=== PATIENT | female | born 1970 | race Caucasian/White ===

== ENCOUNTER 2019-07-22 10:26 | Emergency (ER) | payer OTHER ==
[2019-07-22] MEDS ORDERED: Sodium Chloride 0.9% 1,000 ML IV ONE (10:28)
[2019-07-22] MEDS ORDERED: Ondansetron 4 MG/2 ML SDV IVPUSH ONE (10:40)
[2019-07-22] MEDS ORDERED: Ketorolac 30 MG/ML SDV IVPUSH ONE (10:40)
--- NOTE | 2019-07-22 10:40 | EDM.PDOC ---
ED HPI GENERAL MEDICAL PROBLEM - General Chief Complaint: Flank Pain Stated Complaint: POSSIBLE KIDNEY STONE Time Seen by Provider: 07/22/19 10:27 Source of Information: Reports: Patient History Limitations: Reports: No Limitations - History of Present Illness INITIAL COMMENTS - FREE TEXT/NARRATIVE: HISTORY AND PHYSICAL: History of present illness: Patient is a 48-year-old female who presents to the emergency room with complaints of flank pain. Patient was seen in the emergency room at [facility] yesterday for this pain and was diagnosed with a 13 mm kidney stone on the right. She states she was given information to make an appointment with urology but was not given any prescription pain medications. She states that [id number] Tylenol and ibuprofen have not been alleviating her discomfort and is now concerned that her kidney may be "infected" as she did not have pain this severely yesterday. Patient denies any fever, chills, headache, change in vision, syncope or near syncope. Denies any chest pain, back pain, shortness of breath or cough. Denies any vomiting, diarrhea, constipation or dysuria. Has not noted any blood in urine or stool. Patient has been eating and drinking appropriately. Review of systems: As per history of present illness and below otherwise all systems reviewed and negative. Past medical history: As per history of present illness and as reviewed below otherwise noncontributory. Surgical history: As per history of present illness and as reviewed below otherwise noncontributory. Social history: See social history for further information Family history: As per history of present illness and as reviewed below otherwise noncontributory. Physical exam: General: Well-developed and well-nourished 48-year-old female. Alert and oriented. Nontoxic appearing and in no acute distress. HEENT: Atraumatic, normocephalic, pupils equal and reactive bilaterally, negative for conjunctival pallor or scleral icterus, mucous membranes moist, TMs normal bilaterally, throat clear, neck supple, nontender, trachea midline. No drooling or trismus noted. No meningeal signs. No hot potato voice noted. Lungs: Clear to auscultation, breath sounds equal bilaterally, chest nontender. Heart: S1S2, regular rate and rhythm without overt murmur Abdomen: Soft, nondistended, nontender. Negative for masses or hepatosplenomegaly. Negative for costovertebral tenderness. Pelvis: Stable nontender. Skin: Intact, warm, dry. No lesions or rashes noted. Extremities: Atraumatic, moves all extremities per self without difficulty or deficits, negative for cords or calf pain. Neurovascular unremarkable. Neuro: Awake, alert, oriented. Cranial nerves II through XII unremarkable. Cerebellum unremarkable. Motor and sensory unremarkable throughout. Exam nonfocal. Notes: Did attempt to reach out to [facility] to obtain her records but this was unsuccessful. Patient does request that a repeat CT be done as she is concerned that her kidney is now "infected". CT shows a 9 mm stone in the right UPJ which causes moderate right-sided hydronephrosis. Patient states she does already have contact with Dr. Dailey at [facility] [place]. She states she was never given any prescriptions for Flomax her pain medication. She is comfortable calling in the morning to set up this appointment as the providers already aware of her case. We'll give her prescription for pain management along with Flomax and antinausea. We discussed signs and symptoms that would prompt her to return to the emergency room. Supportive care measures were reviewed and discussed. Voices understanding and is agreeable to plan of care. Denies any further questions or concerns at this time. Diagnostics: CBC, CMP, UA, CT abd/pelv Therapeutics: IV fluids, Zofran, Toradol, Flomax Prescription: Cipro BID x 7 days Flomax [place] (#20) Zofran Impression: Right renal stone UTI Plan: 1. Increase your oral fluids. Take the medications as prescribed. 2. Please call the urologist at [facility] in [place] tomorrow morning to set up your follow-up appointment. 3. Return to the ED as needed and as discussed. Definitive disposition and diagnosis as appropriate pending reevaluation and review of above. right flank Pain Score (Numeric/FACES): 8 - Related Data Allergies Allergy/AdvReac Type Severity Reaction Status Date / Time No Known Allergies Allergy Verified 07/22/19 10:44 Home Meds: Home Meds Lisinopril/Hydrochlorothiazide [Lisinopril-HCTZ 10-12.5 MG] 07/22/19 [History] Pantoprazole [ProTONIX] 07/22/19 [History] ED ROS GENERAL - Review of Systems Review Of Systems: Comprehensive ROS is negative, except as noted in HPI. ED EXAM, RENAL/ - Physical Exam Exam: See Below (See dictation) Course - Vital Signs Last Recorded V/S: Last Vital Signs Temp 96.6 F 07/22/19 10:45 Pulse 64 07/22/19 10:45 Resp 18 07/22/19 10:45 BP 188/94 H 07/22/19 10:45 Pulse Ox 98 07/22/19 10:45 - Orders/Labs/Meds Orders: Active Orders 24 hr Category Date Time Status CULTURE URINE [RM] Stat Lab 07/22/19 11:30 Received Labs: Laboratory Tests 07/22/19 07/22/19 07/22/19 Range/Units 11:00 11:00 11:30 WBC 6.50 (4.0-11.0) K/uL RBC 4.84 (4.30-5.90) M/uL Hgb 14.6 (12.0-16.0) g/dL Hct 42.1 (36.0-46.0) % MCV 87.0 (80.0-98.0) fL MCH 30.2 (27.0-32.0) pg MCHC 34.7 (31.0-37.0) g/dL RDW Std Deviation 40.1 (28.0-62.0) fl RDW Coeff of Char 13 (11.0-15.0) % Plt Count 274 (150-400) K/uL MPV 9.60 (7.40-12.00) fL Neut % (Auto) 60.3 (48.0-80.0) % Lymph % (Auto) 28.3 (16.0-40.0) % Victoria % (Auto) 9.2 (0.0-15.0) % Eos % (Auto) 1.7 (0.0-7.0) % Baso % (Auto) 0.5 (0.0-1.5) % Neut # (Auto) 3.9 (1.4-5.7) K/uL Lymph # (Auto) 1.8 (0.6-2.4) K/uL Victoria # (Auto) 0.6 (0.0-0.8) K/uL Eos # (Auto) 0.1 (0.0-0.7) K/uL Baso # (Auto) 0.0 (0.0-0.1) K/uL Nucleated RBC % 0.0 /100WBC Nucleated RBCs # 0 K/uL Sodium 140 (136-145) mmol/L Potassium 4.1 (3.5-5.1) mmol/L Chloride 104 (98-107) mmol/L Carbon Dioxide 26.7 (21.0-32.0) mmol/L BUN 16 (7.0-18.0) mg/dL Creatinine 1.0 (0.6-1.0) mg/dL Est Cr Clr Drug Dosing 60.06 mL/min Estimated GFR (MDRD) 59.4 ml/min Glucose 98 (74-106) mg/dL Calcium 9.4 (8.5-10.1) mg/dL Total Bilirubin 0.5 (0.2-1.0) mg/dL AST 19 (15-37) IU/L ALT 37 (14-63) IU/L Alkaline Phosphatase 71 (46-116) U/L Total Protein 7.3 (6.4-8.2) g/dL Albumin 3.7 (3.4-5.0) g/dL Globulin 3.6 (2.6-4.0) g/dL Albumin/Globulin Ratio 1.0 (0.9-1.6) Urine Color YELLOW Urine Appearance SLT CLOUDY Urine pH 6.5 (5.0-8.0) Ur Specific [place] 1.020 (1.001-1.035) Urine Protein TRACE H (NEGATIVE) mg/dL Urine Glucose (UA) NEGATIVE (NEGATIVE) mg/dL Urine Ketones NEGATIVE (NEGATIVE) mg/dL Urine Occult Blood MODERATE H (NEGATIVE) Urine Nitrite NEGATIVE (NEGATIVE) Urine Bilirubin NEGATIVE (NEGATIVE) Urine Urobilinogen 0.2 (<2.0) EU/dL Ur Leukocyte Esterase TRACE H (NEGATIVE) Urine RBC 35-40 (0-2/HPF) Urine WBC 4-7 (0-5/HPF) Ur Epithelial Cells MODERATE (NONE-FEW) Amorphous Sediment LIGHT (NEGATIVE) Urine Bacteria 2+ H (NEGATIVE) Urine Mucus LIGHT (NONE-MOD) Meds: Medications Discontinued Medications Generic Name Dose Route Start Last Admin Trade Name Freq PRN Reason Stop Dose Admin Sodium Chloride 1,000 mls @ 999 mls/hr 07/22/19 10:28 07/22/19 11:03 Normal Saline IV 07/22/19 11:28 999 mls/hr STAT ONE Administration Ketorolac Tromethamine 30 mg 07/22/19 10:40 07/22/19 11:03 Toradol IVPUSH 07/22/19 10:41 30 mg ONETIME ONE Administration Morphine Sulfate 4 mg 07/22/19 10:51 07/22/19 11:45 Morphine IVPUSH 07/22/19 10:52 4 mg ONETIME ONE Administration Ondansetron HCl 4 mg 07/22/19 10:40 07/22/19 11:03 Zofran IVPUSH 07/22/19 10:41 4 mg ONETIME ONE Administration Tamsulosin HCl 0.4 mg 07/22/19 10:51 07/22/19 11:03 Flomax PO 07/22/19 10:52 0.4 mg ONETIME ONE Administration Departure - Departure Time of Disposition: 12:01 Disposition: Home, Self-Care Clinical Impression: Renal calculus, right, UTI, Urinary tract infectious disease - Discharge Information Instructions: Kidney Stones, [id number], Urinary Tract Infection, Adult, Easy -to-Read Referrals: PCP,None [Primary Care Provider] - Forms: ED Department Discharge Additional Instructions: The following information is given to patients seen in the emergency department who are being discharged to home. This information is to outline your options for follow-up care. We provide all patients seen in our emergency department with a follow-up referral. The need for follow-up, as well as the timing and circumstances, are variable depending upon the specifics of your emergency department visit. If you don't have a primary care physician on staff, we will provide you with a referral. We always advise you to contact your personal physician following an emergency department visit to inform them of the circumstance of the visit and for follow-up with them and/or the need for any referrals to a consulting specialist. The emergency department will also refer you to a specialist when appropriate. This referral assures that you have the opportunity for follow-up care with a specialist. All of these measure are taken in an effort to provide you with optimal care, which includes your follow-up. Under all circumstances we always encourage you to contact your private physician who remains a resource for coordinating your care. When calling for follow-up care, please make the office aware that this follow-up is from your recent emergency room visit. If for any reason you are refused follow-up, please contact the [facility] Emergency Department at and asked to speak to the emergency department charge nurse. [facility] [address] [place] [id number] [id number] [facility] Specialty Care - Urology [address] [place] [id number] 1. Increase your oral fluids. Take the medications as prescribed. 2. Please call the urologist at [facility] in [place] tomorrow morning to set up your follow-up appointment. 3. Return to the ED as needed and as discussed. - My Orders Last 24 Hours: My Active Orders 07/22/19 11:30 CULTURE URINE [RM] Stat - Assessment/Plan Last 24 Hours: My Active Orders 07/22/19 11:30 CULTURE URINE [RM] Stat
[2019-07-22] MEDS ORDERED: Morphine 4 MG/ML Syringe IVPUSH ONE (10:51)
[2019-07-22] MEDS ORDERED: Tamsulosin 0.4 MG Cap.ER PO ONE (10:51)
[2019-07-22 11:35] LABS: CARBON DIOXIDE,CO2 26.7 mmol/L (21.0-32.0); POTASSIUM,K 4.1 mmol/L (3.5-5.1)
--- NOTE | 2019-07-22 11:40 | CT ---
INDICATION: Flank pain. TECHNIQUE: Noncontrast CT scan of the abdomen and pelvis. FINDINGS: The lung bases are unremarkable. No focal abnormalities identified in the visualized portions of the liver, spleen, pancreas, and adrenal glands. 9 mm stone in the right UPJ which causes moderate right-sided hydronephrosis. The kidneys are otherwise unremarkable. No left-sided hydronephrosis. No other uroliths. The GI tract is incompletely distended but shows no gross abnormalities. The stomach and GE junction are not well assessed. No retroperitoneal, pelvic sidewall, or mesenteric adenopathy. IMPRESSION: 1. 9 mm stone in the right UPJ which causes moderate right-sided hydronephrosis. Dictated by Abdirizak Patrick MD @ 07/22/2019 11:38:08 AM Please note that all CT scans at this facility use dose modulation, iterative reconstruction, and/or weight-based dosing when appropriate to reduce radiation dose to as low as reasonably achievable. Dictated by: Abdirizak Patrick MD @ 07/22/2019 11:38:14 (Electronically Signed)
== END 2019-07-22 12:00 | disposition home or self-care (01) ==
LOC: MW.ED 10:26
DX: N13.2 Hydronephrosis with renal and ureteral calculous obstruction (principal); N39.0 Urinary tract infection, site not specified; Z79.899 Other long term (current) drug therapy
CPT/HCPCS: 36415; 74176; 80053; 81001; 85025; 87086; 96361; 96374; 96375; 99284; A9270; J1885; J2270; J2405; J7040; J7030

== ENCOUNTER 2019-07-26 07:59 | Day surgery (SDC) | payer OTHER ==
[~2019-07-26 07:59] MED LIST: Lactated Ringers 1,000 ML IV SCH; Sodium Chloride 0.9% 10 ML SDV IV PRN; Sodium Chloride 0.9% 10 ML Syringe FLUSH PRN; Sodium Chloride 0.9% 2.5 ML Syringe FLUSH PRN
[2019-07-26] MEDS ORDERED: fentaNYL 100 MCG/2 ML SDV ONE (08:44)
[2019-07-26] MEDS ORDERED: Midazolam 1 MG/ML 2 ML SDV ONE (08:47)
[2019-07-26] MEDS ORDERED: Dexamethasone 4 MG/ML 5 ML MDV ONE (08:48)
[2019-07-26] MEDS ORDERED: Ondansetron 4 MG/2 ML SDV ONE (08:48)
[2019-07-26] MEDS ORDERED: Propofol 200 MG/20 ML SDV ONE (08:50)
--- NOTE | 2019-07-26 09:57 | PCM.PREANE ---
Preanesthetic Assessment - Anesthesia/Transfusion/Family Hx Anesthesia History: Prior Anesthesia Reaction Other Type of Anesthesia Reaction Comment: only after D&C Family History of Anesthesia Reaction: No Transfusion History: No Prior Transfusion(s) - Review of Systems General: No Symptoms Pulmonary: No Symptoms Cardiovascular: No Symptoms Gastrointestinal: No Symptoms Neurological: No Symptoms Other: Reports: None - Physical Assessment NPO Status Date: 07/25/19 Vital Signs: Last Vital Signs Temp 96.8 F 07/26/19 08:31 Pulse 80 07/26/19 08:31 Resp 16 07/26/19 08:31 BP 160/98 H 07/26/19 08:31 Pulse Ox 97 07/26/19 08:31 Height: 5 ft 4 in Weight: 91.626 kg ASA Class: 2 Mental Status: Alert & Oriented x3 Airway Class: Mallampati = 2 Dentition: Reports: Normal Dentition ROM/Head Extension: Full Lungs: Clear to Auscultation, Normal Respiratory Effort Cardiovascular: Regular Rate, Regular Rhythm - Lab Values: Laboratory Last Values Urine HCG, Qual NEGATIVE (NEGATIVE) 07/26/19 08:25 - Allergies Allergies/Adverse Reactions: Allergies Allergy/AdvReac Type Severity Reaction Status Date / Time No Known Allergies Allergy Verified 07/26/19 08:37 - Blood Blood Available: No - Anesthesia Plan Pre-Op Medication Ordered: None - Acknowledgements Anesthesia Type Planned: General Anesthesia Pt an Appropriate Candidate for the Planned Anesthesia: Yes Alternatives and Risks of Anesthesia Discussed w Pt/Guardian: Yes Pt/Guardian Understands and Agrees with Anesthesia Plan: Yes Additional Comments: PMH: stone, hx acholasia PLAN: get PreAnesthesia Questionnaire HEENT History: Reports: Other (See Below) Other HEENT History: wears glasses Cardiovascular History: Reports: Hypertension Gastrointestinal History: Reports: GERD, Other (See Below) Other Gastrointestinal History: hx of Achalasia Genitourinary History: Reports: Other (See Below) Other Genitourinary History: current kidney stone 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: Endocrine/Metabolic History: Reports: Obesity/BMI 30+ - Past Surgical History Head Surgeries/Procedures: Reports: None HEENT Surgical History: Reports: Tonsillectomy Other HEENT Surgeries/Procedures: esophageal issue per PT "acalasia" GI Surgical History: Reports: Appendectomy, Cholecystectomy, Esophageal Dilatation, Other (See Below) Other GI Surgeries/Procedures: has had multiple esophageal procedures- dilatation, tearing and cutting the muscle and removal of lower esophageal sphincter and "raised the stomach" Female Surgical History: Reports: D&C - HOME MEDS Home Medications: Home Meds Lisinopril/Hydrochlorothiazide [Lisinopril-HCTZ 10-12.5 MG] 1 tab PO BEDTIME 09/09 [History] Pantoprazole [ProTONIX] 40 mg PO BID 07/22/19 [History] Ciprofloxacin [Ciprofloxacin HCl] 500 mg PO BID 07/25/19 [History] Hydrocodone/Acetaminophen [Hydrocodon-Acetaminophen 5-325] 1 - 2 tab PO Q4H PRN 07/25/19 [History] Tamsulosin [Flomax] 0.4 mg PO DAILY 07/25/19 [History] - CURRENT (IN HOUSE) MEDS Current Meds: Current Medications Lactated Ringer's (Ringers, Lactated) 1,000 mls @ 100 mls/hr IV ASDIRECTED LEYLA Last Admin: 07/26/19 08:36 Dose: 100 mls/hr Sodium Chloride (Saline Flush) 10 ml FLUSH ASDIRECTED PRN PRN Reason: Keep Vein Open Sodium Chloride (Saline Flush) 2.5 ml FLUSH ASDIRECTED PRN PRN Reason: Keep Vein Open Sodium Chloride (Normal Saline) 10 ml IV ASDIRECTED PRN PRN Reason: IV Use Discontinued Medications Dexamethasone (Dexamethasone) Confirm Administered Dose 20 mg .ROUTE .STK-MED ONE Stop: 07/26/19 08:49 Fentanyl (Sublimaze) Confirm Administered Dose 100 mcg .ROUTE .STK-MED ONE Stop: 07/26/19 08:45 Lidocaine HCl (Xylocaine-Mpf 1%) Confirm Administered Dose 5 ml .ROUTE .STK-MED ONE Stop: 07/26/19 08:45 Midazolam HCl (Versed 1 Mg/Ml) Confirm Administered Dose 2 mg .ROUTE .STK-MED ONE Stop: 07/26/19 08:48 Ondansetron HCl (Zofran) Confirm Administered Dose 4 mg .ROUTE .STK-MED ONE Stop: 07/26/19 08:49 Propofol (Diprivan 20 Ml) Confirm Administered Dose 200 mg .ROUTE .STK-MED ONE Stop: 07/26/19 08:51
[2019-07-26] MEDS ORDERED: Iopamidol 408 MG/ML 50 ML SDV ONE (10:30)
[2019-07-26] MEDS ORDERED: Morphine 4 MG/ML Syringe IVPUSH ONE (11:16)
[2019-07-26] MEDS ORDERED: Sugammadex Sodium 200 MG/2 ML VIAL ONE (11:31)
[2019-07-26] MEDS ORDERED: Desflurane 240 ML Bottle ONE (11:31)
[2019-07-26] MEDS ORDERED: fentaNYL 50 MCG/ML SDV IVPUSH ONE (11:36)
[2019-07-26] MEDS ORDERED: Ketorolac 30 MG/ML SDV IVPUSH ONE (11:38)
[2019-07-26] MEDS ORDERED: fentaNYL 100 MCG/2 ML SDV IVPUSH ONE (11:45)
[2019-07-26] MEDS ORDERED: Sodium Chloride 0.9% 20 ML ONE (11:52)
[2019-07-26] MEDS ORDERED: ePHEDrine 50 MG/ML SDV ONE (11:52)
--- NOTE | 2019-07-26 12:45 | PCM.POSTAN ---
POST ANESTHESIA ASSESSMENT - MENTAL STATUS Mental Status: Alert, Oriented - VITAL SIGNS Vital Signs: Last Vital Signs Temp 36.1 C 07/26/19 12:08 Pulse 70 07/26/19 12:37 Resp 10 L 07/26/19 12:37 BP 148/89 H 07/26/19 12:37 Pulse Ox 95 07/26/19 12:37 - RESPIRATORY Respiratory Status: Respiratory Rate WNL, Airway Patent, O2 Saturation Stable - CARDIOVASCULAR CV Status: Pulse Rate WNL, Blood Pressure Stable - GASTROINTESTINAL GI Status: No Symptoms - PAIN Pain Score: 0 - POST OP HYDRATION Hydration Status: Adequate & Stable
--- NOTE | 2019-07-26 13:33 | PCM48HPAN ---
Post Anesthesia Note - EVALUATION WITHIN 48HRS OF ANESTHETIC Vital Signs in Normal Range: Yes Patient Participated in Evaluation: Yes Respiratory Function Stable: Yes Airway Patent: Yes Cardiovascular Function Stable: Yes Hydration Status Stable: Yes Pain Control Satisfactory: Yes (Minimal cramping present) Nausea and Vomiting Control Satisfactory: Yes Mental Status Recovered: Yes Vital Signs: Last Vital Signs Temp 36.5 C 07/26/19 12:50 Pulse 64 07/26/19 13:05 Resp 14 07/26/19 13:05 BP 132/89 07/26/19 13:05 Pulse Ox 94 L 07/26/19 13:05 - COMMENTS/OBSERVATIONS Free Text/Narrative:: Doing well. Taking fluids without nausea. Ready for discharge. No problems noted.
--- NOTE | 2019-07-26 16:04 | OR ---
SURGEON: Carine Israel M.D. DATE OF PROCEDURE: 07/26/2019 PREOPERATIVE DIAGNOSIS: 1 cm right ureteropelvic junction stone. POSTOPERATIVE DIAGNOSIS: 1 cm right ureteropelvic junction stone. OPERATIONS: Extracorporeal shock wave lithotripsy plus cystoscopy, double-J stent placement. DESCRIPTION OF PROCEDURE: The patient was given general anesthesia. She was on the lithotripsy table. Position of the patient was adjusted, so the stone could be treated and eventually received a total of 2400 shocks. The stone broke, but the last piece, which was about 4 mm, did not change. At that point, the patient was placed in dorsal lithotomy position. Cystoscopy was done that was normal. A guidewire was advanced in the right ureter all the way up into the renal pelvis over which a 6-Croatian 26 cm double-J stent was placed. The position was confirmed with fluoroscopy. The bladder was emptied, and the patient was moved to the recovery room in good condition. PLAN: I will see her this coming week. We will get a KUB and take it from there. NHAN / ANSON /[id number]
[2019-07-26] MEDS ORDERED: Ciprofloxacin 500 MG Tab PO SCH (21:00)
[2019-07-26] MEDS ORDERED: Pantoprazole 40 MG Tab.CR PO SCH (21:00)
[2019-07-26] MEDS ORDERED: Lisinopril/Hydrochlorothiazide 10-12.5 MG Tab PO SCH (21:00)
[2019-07-27] MEDS ORDERED: Ondansetron 4 MG/2 ML SDV ONE (08:26)
[2019-07-27] MEDS ORDERED: fentaNYL 100 MCG/2 ML SDV ONE (08:27)
[2019-07-27] MEDS ORDERED: Propofol 200 MG/20 ML SDV ONE (08:27)
[2019-07-27] MEDS ORDERED: Tamsulosin 0.4 MG Cap.ER PO SCH (09:00)
== END 2019-07-26 14:06 | disposition home or self-care (01) ==
LOC: MW.SDS 07:59
PROVIDERS: ATTEND Urology
DX: N20.2 Calculus of kidney with calculus of ureter (principal); I10 Essential (primary) hypertension; K21.9 Gastro-esophageal reflux disease without esophagitis; E66.9 Obesity, unspecified; Z68.34 Body mass index [BMI] 34.0-34.9, adult; Z79.899 Other long term (current) drug therapy
CPT/HCPCS: 81025; J0131; J1100; J1885; J2001; J2250; J2405; J2704; J3010; J3490; J7120; Q9966

== ENCOUNTER 2019-08-09 07:55 | Day surgery (SDC) | payer OTHER ==
[~2019-08-09 07:55] MED LIST changes: +50% Dextrose in Water 50 ML Syringe IVPUSH PRN; +Albuterol 0.083% 2.5 MG/3 ML Neb Soln NEB PRN; +Atropine 0.1 MG/ML 10 ML Syringe IVPUSH PRN; +EPINEPHrine 1:10,000 1 MG/10 ML Syringe IVPUSH PRN; +Naloxone 0.4 MG/ML Syringe IVPUSH PRN; +ceFAZolin 2 GM in Premix Bag 1 BAG IV ONE; +fentaNYL 100 MCG/2 ML SDV IVPUSH PRN
[2019-08-09] MEDS ORDERED: Propofol 200 MG/20 ML SDV ONE ×2 (08:47→10:34)
[2019-08-09] MEDS ORDERED: Midazolam 1 MG/ML 2 ML SDV ONE (08:47)
[2019-08-09] MEDS ORDERED: fentaNYL 250 MCG/5 ML SDV ONE (08:48)
[2019-08-09] MEDS ORDERED: ePHEDrine 50 MG/ML SDV ONE (08:49)
[2019-08-09] MEDS ORDERED: Sodium Chloride 0.9% 20 ML ONE (08:49)
[2019-08-09] MEDS ORDERED: Rocuronium 100 MG/10 ML Syringe ONE (08:49)
[2019-08-09] MEDS ORDERED: Phenylephrine/Normal Saline 100 MCG/ML 10 ML Syringe ONE (08:49)
--- NOTE | 2019-08-09 09:06 | PCM.PREANE ---
Preanesthetic Assessment - Anesthesia/Transfusion/Family Hx Anesthesia History: Prior Anesthesia Without Reaction Other Type of Anesthesia Reaction Comment: only after D&C Family History of Anesthesia Reaction: No Transfusion History: No Prior Transfusion(s) Intubation History: Unknown - Review of Systems General: No Symptoms Pulmonary: No Symptoms Cardiovascular: No Symptoms Gastrointestinal: No Symptoms Neurological: No Symptoms Other: Reports: None - Physical Assessment Vital Signs: Last Vital Signs Temp 36.3 C 08/09/19 08:31 Pulse 88 08/09/19 08:31 Resp 16 08/09/19 08:31 BP 155/95 H 08/09/19 08:31 Pulse Ox 96 08/09/19 08:31 Height: 5 ft 4 in Weight: 86.183 kg ASA Class: 2 Mental Status: Alert & Oriented x3 Airway Class: Mallampati = 2 Dentition: Reports: Normal Dentition Thyro-Mental Finger Breadths: 3 Mouth Opening Finger Breadths: 3 ROM/Head Extension: Full Lungs: Clear to Auscultation, Normal Respiratory Effort Cardiovascular: Regular Rate, Regular Rhythm - Allergies Allergies/Adverse Reactions: Allergies Allergy/AdvReac Type Severity Reaction Status Date / Time No Known Allergies Allergy Verified 08/09/19 08:30 - Blood Blood Available: No - Anesthesia Plan Pre-Op Medication Ordered: None - Acknowledgements Anesthesia Type Planned: General Anesthesia Pt an Appropriate Candidate for the Planned Anesthesia: Yes Alternatives and Risks of Anesthesia Discussed w Pt/Guardian: Yes Pt/Guardian Understands and Agrees with Anesthesia Plan: Yes PreAnesthesia Questionnaire HEENT History: Reports: Other (See Below) Other HEENT History: wears glasses Cardiovascular History: Reports: Hypertension Gastrointestinal History: Reports: GERD, Other (See Below) Other Gastrointestinal History: hx of Achalasia Genitourinary History: Reports: Other (See Below) Other Genitourinary History: current kidney stone 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: Endocrine/Metabolic History: Reports: Obesity/BMI 30+ (BMI 32.6) - Past Surgical History Head Surgeries/Procedures: Reports: None HEENT Surgical History: Reports: Tonsillectomy Other HEENT Surgeries/Procedures: esophageal issue per PT "acalasia" GI Surgical History: Reports: Appendectomy, Cholecystectomy, Esophageal Dilatation, Other (See Below) Other GI Surgeries/Procedures: has had multiple esophageal procedures- dilatation, tearing and cutting the muscle and removal of lower esophageal sphincter and "raised the stomach" (sounds like Tory fundoplasty) Female Surgical History: Reports: D&C, Lithotripsy/ESWL (2 weeks ago) - HOME MEDS Home Medications: Home Meds Pantoprazole [ProTONIX] 40 mg PO BID 07/22/19 [History] Losartan/Hydrochlorothiazide [Losartan-HCTZ 100-12.5 MG] 1 tab PO DAILY [History] - CURRENT (IN HOUSE) MEDS Current Meds: Current Medications Albuterol (Proventil Neb Soln) 2.5 mg NEB ONETIME PRN PRN Reason: Wheezing Atropine Sulfate (Atropine 0.1 Mg/Ml) 0.5 mg IVPUSH ASDIRECTED PRN PRN Reason: Hypo-perfusion Stop: 08/10/19 07:25 Atropine Sulfate (Atropine 0.1 Mg/Ml) 1 mg IVPUSH ASDIRECTED PRN PRN Reason: Hypo-Perfusion Dextrose/Water (Dextrose 50% In Water) 50 ml IVPUSH ASDIRECTED PRN PRN Reason: Hypoglycemia Epinephrine HCl (Epinephrine 1:10,000) 1 mg IVPUSH ASDIRECTED PRN PRN Reason: ACLS Guidelines Fentanyl (Sublimaze) 50 mcg IVPUSH Q5M PRN PRN Reason: Pain Lactated Ringer's (Ringers, Lactated) 1,000 mls @ 100 mls/hr IV ASDIRECTED LEYLA Last Admin: 08/09/19 08:29 Dose: 100 mls/hr Naloxone HCl (Narcan) 0.1 mg IVPUSH ASDIRECTED PRN PRN Reason: Respiratory Depression Sodium Chloride (Saline Flush) 10 ml FLUSH ASDIRECTED PRN PRN Reason: Keep Vein Open Sodium Chloride (Saline Flush) 2.5 ml FLUSH ASDIRECTED PRN PRN Reason: Keep Vein Open Sodium Chloride (Normal Saline) 10 ml IV ASDIRECTED PRN PRN Reason: IV Use Discontinued Medications Ephedrine Sulfate (Ephedrine Sulfate) Confirm Administered Dose 50 mg .ROUTE .STK-MED ONE Stop: 08/09/19 08:50 Fentanyl (Sublimaze) Confirm Administered Dose 250 mcg .ROUTE .STK-MED ONE Stop: 08/09/19 08:49 Cefazolin Sodium/Dextrose 2 gm (/ Premix) 50 mls @ 100 mls/hr IV ONCALL ONE Stop: 08/09/19 00:30 Sodium Chloride (Normal Saline) Confirm Administered Dose 20 mls @ as directed .ROUTE .STK-MED ONE Stop: 08/09/19 08:50 Midazolam HCl (Versed 1 Mg/Ml) Confirm Administered Dose 2 mg .ROUTE .STK-MED ONE Stop: 08/09/19 08:48 Phenylephrine HCl (Phenylephrine In Ns 100 Mcg/Ml) Confirm Administered Dose 1 mg .ROUTE .STK-MED ONE Stop: 08/09/19 08:50 Propofol (Diprivan 20 Ml) Confirm Administered Dose 200 mg .ROUTE .STK-MED ONE Stop: 08/09/19 08:48 Rocuronium [place] (Zemuron) Confirm Administered Dose 100 mg .ROUTE .STK-MED ONE Stop: 08/09/19 08:50 Succinylcholine Chloride (Succinylcholine Chloride) Confirm Administered Dose 200 mg .ROUTE .STK-MED ONE Stop: 08/09/19 08:50
[2019-08-09] MEDS ORDERED: ceFAZolin/Dextrose,Iso-Osmotic 2 GM/50 ML Duplex Bag IV ONE (09:15)
--- NOTE | 2019-08-09 11:55 | OR ---
SURGEON: Carine Israel M.D. DATE OF PROCEDURE: 08/09/2019 PREOPERATIVE DIAGNOSIS: Right renal pelvis stone, status post extracorporeal shock wave lithotripsy. POSTOPERATIVE DIAGNOSIS: Right renal pelvis stone, status post extracorporeal shock wave lithotripsy. OPERATIONS: Cystoscopy, removal of double-J stent, renoscopy, and laser lithotripsy. DESCRIPTION OF PROCEDURE: The patient was given general anesthesia. She was in the dorsal lithotomy position, prepped and draped in sterile drapes. Cystourethroscopy was done. The existing double-J stent was removed. Following that, two guidewires were advanced in the right renal pelvis. Over one of those, the flexible ureteroscope was advanced. The stone was visualized and broken up into multiple small pieces. The Zero Tip basket was then used to remove the majority of those pieces. What was remaining, a small amount, which the patient should be able to pass. With that done, the bladder was emptied, and the patient was moved to recovery room in stable condition. NHAN / ANSON /[id number]
--- NOTE | 2019-08-09 12:02 | PCM.POSTAN ---
POST ANESTHESIA ASSESSMENT - MENTAL STATUS Mental Status: Alert, Oriented - VITAL SIGNS Vital Signs: Last Vital Signs Temp 36.1 C 08/09/19 11:35 Pulse 111 H 08/09/19 11:55 Resp 14 08/09/19 11:55 BP 127/75 08/09/19 11:55 Pulse Ox 92 L 08/09/19 11:55 - RESPIRATORY Respiratory Status: Respiratory Rate WNL, Airway Patent, O2 Saturation Stable - CARDIOVASCULAR CV Status: Pulse Rate WNL, Blood Pressure Stable - GASTROINTESTINAL GI Status: No Symptoms - PAIN Pain Score: 0 - POST OP HYDRATION Hydration Status: Adequate & Stable - OBSERVATIONS Free Text/Narrative:: no anesthesia problems
[2019-08-09] MEDS ORDERED: Acetaminophen/HYDROcodone 325-5 MG Tab PO ONE (12:53)
[2019-08-09] MEDS ORDERED: Ketorolac 30 MG/ML SDV IVPUSH ONE (13:34)
--- NOTE | 2019-08-09 14:22 | PCM48HPAN ---
Post Anesthesia Note - EVALUATION WITHIN 48HRS OF ANESTHETIC Vital Signs in Normal Range: Yes Patient Participated in Evaluation: Yes Respiratory Function Stable: Yes Airway Patent: Yes Cardiovascular Function Stable: Yes Hydration Status Stable: Yes Pain Control Satisfactory: Yes Nausea and Vomiting Control Satisfactory: Yes Mental Status Recovered: Yes Vital Signs: Last Vital Signs Temp 97.0 F 08/09/19 11:35 Pulse 111 H 08/09/19 11:55 Resp 14 08/09/19 11:55 BP 127/75 08/09/19 11:55 Pulse Ox 92 L 08/09/19 11:55
[2019-08-09] MEDS ORDERED: Pantoprazole 40 MG Tab.CR PO SCH (21:00)
--- NOTE | 2019-08-10 07:20 | CR ---
Abdomen: 2 fluoroscopic spot views were obtained utilizing C-arm device. Study shows ureteroscope with guidewire. Fluoroscopy time given as 13.6 seconds. Impression: 1. Procedural study. Diagnostic code #2 This report was dictated in [place] Standard Time
== END 2019-08-09 14:35 | disposition home or self-care (01) ==
LOC: MW.SDS 07:55
PROVIDERS: ATTEND Urology
DX: N20.0 Calculus of kidney (principal); I10 Essential (primary) hypertension; K21.9 Gastro-esophageal reflux disease without esophagitis; Z79.899 Other long term (current) drug therapy
CPT/HCPCS: 76000; 76000-26; A9270-GY; C1769; J0330; J0690; J1885; J2250; J2370; J2704; J3010; J7120

== ENCOUNTER 2025-06-02 09:45 | Emergency (ER) | payer BC, OTHER ==
[2025-06-02 10:23] LABS: BASOPHILS ABSOLUTE AUTO 0.04 K/uL (0.00-0.20); BASOPHILS PERCENT AUTO 0.5 % (0.0-1.0); EOSINOPHILS ABSOLUTE AUTO 0.06 K/uL (0.00-0.45); EOSINOPHILS PERCENT AUTO 0.7 % (0.0-6.0); IMMATURE GRAN ABSOLUTE AUTO 0.03 K/uL (0.00-0.05); IMMATURE GRAN PERCENT AUTO 0.4 % (0.0-0.4); LYMPHOCYTES ABSOLUTE AUTO 1.92 K/uL (1.00-4.80); LYMPHOCYTES PERCENT AUTO 22.7 % (24.0-44.0); MEAN PLATELET VOLUME 9.3 fL (9.4-12.3); MONOCYTES ABSOLUTE AUTO 0.53 K/uL (0.00-0.80); MONOCYTES PERCENT AUTO 6.3 % (0.0-8.0); NEUTROPHILS ABSOLUTE AUTO 5.88 K/uL (1.80-7.70); NEUTROPHILS PERCENT AUTO 69.4 % (41.0-71.0); NRBC ABSOLUTE 0.00 K/uL (0.00-0.02); NRBC PERCENT 0.0 /100WBC (0.0-0.2); PLATELET COUNT,PLT 257 K/uL (150-400); RED BLOOD CELL COUNT 4.88 M/uL (4.10-5.30); WHITE BLOOD CELL COUNT,WBC 8.46 K/uL (3.9-11.3)
[2025-06-02] MEDS: Iopamidol 755 Mg/ML 100 ML Bottle IVPUSH ONE (10:33)
[2025-06-02 10:36] LABS: INR 1.07 (0.86-1.11)
[2025-06-02 10:44] LABS: A/G RATIO 1.1 (0.9-1.6); ALANINE AMINOTRANSFERASE,ALT 34.0 IU/L (14-63); ASPARTATE AMNIOTRANSFERASE,AST 17.0 IU/L (15-37); BILIRUBIN TOTAL 0.5 mg/dL (0.2-1.0); BLOOD UREA NITROGEN,BUN 18.0 mg/dL (7.0-18.0); CARBON DIOXIDE,CO2 28.3 mmol/L (21.0-32.0); CHLORIDE,CL 104.0 mmol/L (98-107); CREATININE 0.9 mg/dL (0.6-1.0); EST CRCL DRUG DOSING (CG) 62.42 mL/min; GLUCOSE RANDOM 93.0 mg/dL (74-106); POTASSIUM,K 4.2 mmol/L (3.5-5.1); PROTEIN TOTAL,TP 7.2 g/dL (6.4-8.2); SODIUM,NA 141.0 mmol/L (136-145)
[2025-06-02 10:54] LABS: ESTIMATED GFR 76.0 mL/min (>60)
[2025-06-02 11:28] LABS: APPEARANCE,URINE CLEAR; GLUCOSE,URINE NEGATIVE (NEGATIVE); OCCULT BLOOD,URINE TRACE-INTACT (NEGATIVE)
[2025-06-02 11:33] LABS: SQUAMOUS EPITHELIAL CELLS,UR FEW
== END 2025-06-02 12:09 | disposition home or self-care (01) ==
LOC: MW.ED 09:45
DX: K52.9 Noninfective gastroenteritis and colitis, unspecified (principal); K62.5 Hemorrhage of anus and rectum; K21.9 Gastro-esophageal reflux disease without esophagitis; I10 Essential (primary) hypertension; E66.9 Obesity, unspecified; Z90.49 Acquired absence of other specified parts of digestive tract; Z79.899 Other long term (current) drug therapy; Z79.82 Long term (current) use of aspirin; Z68.31 Body mass index [BMI] 31.0-31.9, adult
CPT/HCPCS: 36415; 74177; 80053; 81001; 83690; 85025; 85610; 96360; 99285; A9270; J7030; Q9967; 99283